=== PATIENT | female | born 1985 | race Caucasian/White ===

== ENCOUNTER 2022-10-20 09:50 | Outpatient (OUT) | payer BC, SELFPAY ==
--- NOTE | 2022-10-20 09:53 | US_ITS ---
[address] [address] Patient Name: JEFFRY WELLINGTON MRN: [id number] date: 1985 Sex: F Assigned Patient Location: US Current Patient Location: US Accession/Order Number: [id number] Exam Date: 10/20/2022 10:10 Report Date: 10/20/2022 11:57 At the request of: ASHER MCCRACKEN Procedure: US pelvis w/ transvaginal EXAMINATION: US pelvis w/ transvaginal HISTORY: Ovulation pain N94.0, Pelvic pain in female R10.2 COMPARISON: No relevant comparison available. TECHNIQUE: Transabdominal and/or transvaginal sonographic examination was performed as indicated by examination type. FINDINGS: UTERUS: Normal size and appearance. Uterus size: 9.1 x 5.7 x 4.6 cm ENDOMETRIUM: Normal homogeneous appearance. Endometrial thickness: 12 mm RIGHT OVARY: Contains multiple similar sized peripherally located follicles 4 mm in diameter. Duplex Doppler demonstrates normal waveform and flow; resistive index 0.6. Ovary size: 3.7 x 2.2 x 1.7 cm LEFT OVARY: Contains a 2.4 cm round isoechoic area with lower density central area; mass versus complex cyst. Duplex Doppler demonstrates normal waveform and flow; resistive index 0.4. Ovary size: 3.8 x 2.6 x 1.9 cm. CUL-DE-SAC: Unremarkable. No significant free fluid. BLADDER: Unremarkable. OTHER: Multiple dilated vessels within left adnexa; nonspecific. US/US pelvis w/ transvaginal IMPRESSION: 1. Left ovary contains a 2.4 cm complex cyst versus mass. Follow-up ultrasound evaluation in 6 weeks is recommended to document regression. 2. Unremarkable uterus and endometrium. 3. Prominent left periuterine vessels of questionable clinical significance. Electronically authenticated by: LONI ASHLEY Date: 10/20/2022 11:57
--- NOTE | 2022-10-20 09:53 | MM_ITS ---
Patient: JEFFRY WELLINGTON Exam Date: 10/20/2022 : 1985 Gender:F Ordering : DR Brant Sharp . Admission #: [id number] Family : DR PEGGY FENG . Order #: [id number] CLICK HERE TO VIEW EXAM RADIOLOGY REPORT PROCEDURE: MM TOMOSYNTHESIS SCREENING BI COMPARISON: None. INDICATIONS: Screening mammogram Z12.31 Calculator Name NCI Breast Cancer Risk Assessment Tool 5 Year Breast Cancer Risk 0.50% Lifetime Breast Cancer Risk 13.90% Personal Breast Cancer No Personal Ovarian Cancer No Treatments None Family Cancers Grandmother-maternal with breast cancer at age 65. LOCATION: [facility] BREAST COMPOSITION: Extremely dense, which lowers the sensitivity of mammography. FINDINGS: DIAGNOSTIC CATEGORY 1--NEGATIVE. Scattered benign-appearing calcifications are present. RIGHT BREAST: No significant suspicious finding. LEFT BREAST: No significant suspicious finding. RECOMMENDATIONS: CLINICAL EVALUATION. PLEASE NOTE: A NORMAL MAMMOGRAM DOES NOT EXCLUDE THE POSSIBILITY OF BREAST CANCER. A CLINICALLY SUSPICIOUS PALPABLE LUMP SHOULD BE BIOPSIED. Dictated by: Dao Leblanc MD on 10/27/2022 at 14:34 Approved by: Dao Leblanc MD on 10/27/2022 at 14:34
== END 2022-10-20 09:51 | disposition home or self-care (01) ==
LOC: US 09:50
PROVIDERS: PCP Family Medicine; Visit Provider Obstetrics & Gynecology
DX: Z12.31 Encounter for screening mammogram for malignant neoplasm of breast (principal); Z80.3 Family history of malignant neoplasm of breast; N94.0 Mittelschmerz; R10.2 Pelvic and perineal pain
CPT/HCPCS: 76830; 76856; 77063; 77067

== ENCOUNTER 2022-12-08 09:51 | Outpatient (OUT) | payer BC, SELFPAY ==
--- NOTE | 2022-12-08 10:02 | US_ITS ---
The [address] [address] Patient Name: JEFFRY WELLINGTON MRN: [id number] date: 1985 Sex: F Assigned Patient Location: US Current Patient Location: US Accession/Order Number: [id number] Exam Date: 12/08/2022 10:11 Report Date: 12/08/2022 14:07 At the request of: ASHER MCCRACKEN Procedure: US pelvis w/ transvaginal EXAMINATION: US pelvis w/ transvaginal HISTORY: Complex Cyst Of Left Ovary N83.292 COMPARISON: 10/20/2022 FINDINGS: The uterus is normal in size, contour and myometrial echotexture measuring 9.6 x 5.3 x 4.3 cm. No focal myometrial mass. Endometrium measures 1.5 cm, within normal limits The right ovary measures 3.4 x 2.89 cm. Normal color Doppler flow. Areas of anechoic echogenicity measuring up to 1.6 cm, cysts and follicles favored The left ovary measures 3.0 x 2.3 x 1.8 cm. Mild color and Doppler flow. Multiple areas of anechoic echogenicity measuring up to 1.4 cm, cysts and follicles favored Prominent left adnexal vessels US/US pelvis w/ transvaginal IMPRESSION: Bilateral ovarian follicles/cysts Prominent left adnexal vessels, consider uterine vein reflux/pelvic vascular congestion Electronically authenticated by: MYLES JJ Date: 12/08/2022 14:07
== END 2022-12-08 09:52 | disposition home or self-care (01) ==
LOC: US 09:51
PROVIDERS: PCP Family Medicine; Visit Provider Obstetrics & Gynecology
DX: N83.292 Other ovarian cyst, left side (principal); N83.02 Follicular cyst of left ovary; N83.01 Follicular cyst of right ovary
CPT/HCPCS: 76830; 76856

== ENCOUNTER 2023-01-21 19:33 | Outpatient (REF) | payer BC, SELFPAY ==
[2023-01-26 18:10] LABS: Age Gdln ACOG Testing Note (.); HPV Aptima Negative (Negative); IGP, Aptima HPV, rfx 16/18,45 Note (.)
== END 2023-01-21 19:34 | disposition home or self-care (01) ==
LOC: LAB 19:33
PROVIDERS: PCP Family Medicine; Visit Provider Obstetrics & Gynecology
DX: Z01.419 Encounter for gynecological examination (general) (routine) without abnormal findings (principal)
CPT/HCPCS: 87624; G0145

== ENCOUNTER 2024-01-27 20:57 | Outpatient (REF) | payer BC, SELFPAY ==
--- OUTSIDE RECORDS SUMMARY | 2024-01-27 21:01 | XMS_ITS | CCD ---
Author Organization [facility] Care Team Providers Care Chief Design Drafter Name Role Phone DR PEGGY FENG Admitting Unavailable JUNG, DR PEGGY Oropeza Attending Unavailable JUNG, DR PEGGY Oropeza Primary Care Unavailable KAYKAY, DR STERLING Consulting Unavailable KAYKAY, DR STERLING Admitting Unavailable KAYKAY, DR STERLING Attending Unavailable JUNG, DR PEGGY Oropeza Admitting Unavailable JUNG, DR PEGGY Oropeza Attending Unavailable DARROW, DR BUENO Consulting Unavailable JUNG, DR PEGGY Oropeza Primary Care Unavailable JUNG, DR PEGGY Oropeza Consulting Unavailable Problems Problem Classification Problem Date Documented Date Episodic/Chronic Immunizations and screening for infectious disease (1 source) Encounter for screening for human papillomavirus (HPV); Translations: [ENC SCREENING HUMAN PAPILLOMAVIRUS] Onset: 01-10-2022 Episodic Nonspecific chest pain (4 sources) Chest pain, unspecified; Translations: [CHEST PAIN UNSPECIFIED] Onset: 01-22-2022 Episodic Other screening for suspected conditions (not mental disorders or infectious disease) (4 sources) Encounter for screening for malignant neoplasm of cervix; Translations: [ENC SCREENING MALIG NEOPLASM CERV] Onset: 01-08-2022 Episodic Results Test Name Value Interpretation Reference Range Facil ity NM STRESS/REST MULTIon 01-22 NM STRESS/REST MULTI Patient: JEFFRY WELLINGTON. Exam Date: 01/22/2022 : 1985 Gender:F Ordering : DR PEGGY FENG . Admission #: [id number] Family : Order #: [id number] CLICK HERE TO VIEW EXAM RADIOLOGY REPORT PROCEDURE: RADIONUCLIDE IMAGING STRESS/REST MULTI COMPARISON: None. INDICATIONS: Central chest pain TECHNIQUE: Exam Description: Stress/Rest one day protocol gated SPECT Rest Imagin.6 mCi Tc-99m Cardiolite IV on 01/23/2022 Stress Imaging 32.0 mCi Tc-99m Cardiolite IV on 01/23/2022 Exercise Protocol: Riaz Heart Rate (bpm): Rest: 77 Max: 169 PMHR: 90 Blood Pressure: Rest: 118/76 Max: 154/92 Exercise Time: Minutes: 12 Seconds: 00 Stage Reached: Stage: 3 Mets 13.4 Symptoms: Rest and peak stress ECG findings were normal and the exercise portion of the study was normal per attending physician Dr. Em . For more details please see separate cardiac stress test report. FINDINGS: QUALITY OF STUDY: Excellent. PERFUSION DEFECT: None. LOCATION: N/A SIZE: N/A. SEVERITY: N/A. TYPE: N/A. WALL MOTION: Normal. LV SIZE: Normal. 88 mL. TID / TCD: None; 1.0 LVEF: Normal. Calculated EF 66%. SUMMARY: Myocardial perfusion imaging study is NORMAL. CONCLUSION: Normal exam. No reversible ischemia Dictated by: Dao Leblanc MD on 01/22/2022 at 15:15 Approved by: Dao Leblanc MD on 01/22/2022 at 15:19 Normal [facility] PAP ACOG PANEL 2: 30 to 65on 01-18-2022 . . Normal [facility] Comment on above: Result Comment: Performed at: WB Performed By: #### [id number] #### [facility] [address] [place] [address] Dr. Tyesha Watson Age Gdln ACOG Testing 30-65 Normal [facility] Comment on above: Performed By: #### [id number] #### [facility] [address] [place] [address] Dr. Tyesha Watson DIAGNOSIS: Comment Normal [facility] Comment on above: Result Comment: NEGATIVE FOR INTRAEPITHE LIAL LESION OR MALIGNANCY. Performed at: WB Performed By: #### [id number] #### [facility] [address] [address] [address] Tyesha Watson HPV Aptima Negative Normal Negative [facility] Comment on above: Result Comment: This nucleic acid amplif ication test detects fourteen high-risk HPV types (16,18,31,33,35,39,45,51,52,56,58,59,66,68) without differentiation. Performed at: =G Performed By: #### [id number] #### [facility] [address] [place], [place] [id number] Dr. Tyesha Watson HPV Genotype Reflex Comment Normal [facility] Comment on above: Result Comment: Criteria not met, HPV Ge notype not performed. Performed at: WB Performed By: #### [id number] #### [facility] [address] [place] [address] Dr. Tyesha Watson Methodology: Comment Normal [facility] Comment on above: Result Comment: This liquid based ThinPr ep(R) pap test was screened with the use of an image guided system. Performed at: WB Performed By: #### [id number] #### [facility] [address] [place] [address] Dr. Tyesha Watson Note: Comment Normal [facility] Comment on above: Result Comment: The Pap smear is a scree kath test designed to aid in the detection of premalignant and malignant conditions of the uterine cervix. It is not a diagnostic procedure and should not be used as the sole means of detecting cervical cancer. Both false-positive and false-negative reports do occur. . Performed at: WB Performed By: #### [id number] #### [facility] [address] [place] [address] Dr. Tyesha Watson Performed by: Comment Normal [facility] Comment on above: Result Comment: Riaz Almaraz, [facility] otechnologist (ASCP) Performed at: WB Performed By: #### [id number] #### [facility] [address] [place] [address] Dr. Tyesha Watson Specimen adequacy: Comment Normal [facility] Comment on above: Result Comment: Satisfactory for evaluat ion. Endocervical and/or squamous metaplastic cells (endocervical component) are present. Areas of partially obscuring inflammatory exudate are present. Performed at: WB Performed By: #### [id number] #### [facility] [address] [place] [address] Dr. Tyesha Watson Encounters Encounter Date Encounter Type Care Provider Facility Start: 01-22-2022 End: 01-23-[address] PEGGY FENG Facility:[facility] Start: 01-22-[address] PEGGY FENG Facil ity:[facility] Start: 01-08-2022 End: 01-08-[address] ASHER MCCRACKEN Facility:[facility] Payers Date Payer Category Payer Unknown [id number] 2.16.84 [id number] 1985 Unknown [id number] 2.16.84 [id number] 1985 Unknown [id number] 2.16.84 [id number] 1957 Self-pay 1957 Unknown [id number] Summary Purpose Family History No Family History Records Found Advance Directives No Advanced Directives Records Found Additional Source Comments INFORMATION SOURCE (unrecogn ized section and content) DATE CREATED AUTHOR 01/28/2022 [facility] FOR RECORDS PERTAINING TO PATIENTS WHO ARE OR HAVE BEEN ENROLLED IN A CHEMICAL DEPENDENCY/SUBSTANCEABUSE PROGRAM, SOME INFORMATION MAY BE OMITTED. This clinical summary was aggregated from multiple sources. Caution should be exercised in using it in the provision of clinical care. This summary normalizes information from multiple sources, and as a consequence, information in this document may materially change the coding, format and clinical context of patient data. In addition, data may be omitted in some cases. CLINICAL DECISIONS SHOULD BE BASED ON THE PRIMARY CLINICAL RECORDS. [facility] [employer] provides no warranty or guarantee of the accuracy or completeness of information in this document.
== END 2024-01-27 20:58 | disposition home or self-care (01) ==
LOC: LAB 20:57
PROVIDERS: PCP Family Medicine; Visit Provider Obstetrics & Gynecology
DX: Z01.419 Encounter for gynecological examination (general) (routine) without abnormal findings (principal)
CPT/HCPCS: 88175

== ENCOUNTER 2025-02-01 18:57 | Outpatient (REF) | payer BC, SELFPAY ==
--- OUTSIDE RECORDS SUMMARY | 2025-02-01 19:01 | XMS_ITS | CCD ---
Author Organization [facility] Care Team Providers Care Fruit Raiser Name Role Phone DR PEGGY FENG Admitting Unavailable JUNG, DR PEGGY Oropeza Attending Unavailable JUNG, DR PEGGY Oropeza Primary Care Unavailable KAYKAY, DR STERLING Consulting Unavailable KAYKAY, DR STERLING Admitting Unavailable KAYKAY, DR STERLING Attending Unavailable JUNG, DR PEGGY Oropeza Admitting Unavailable JUNG, DR PEGGY Oropeza Attending Unavailable [place], DR BUENO Consulting Unavailable NADPRAMODR, DR PEGGY Oropeza Primary Care Unavailable JUNG, DR PEGGY Oropeza Consulting Unavailable Problems Problem ClassificationProblemDateDocumented DateEpisodic/ChronicImmunizations and screening for infectious disease (1 source)Encounter for screening for human papillomavirus (HPV); Translations: [ENC SCREENING HUMAN PAPILLOMAVIRUS]Onset: 73-02-0469DogicdgcImnyemgytkb chest pain (4 sources)Chest pain, unspecified; Translations: [CHEST PAIN UNSPECIFIED]Onset: 96-98-2601IkkofyuhJzknu screening for suspected conditions (not mental disorders or infectious disease) (4 sources)Encounter for screening for malignant neoplasm of cervix; Translations: [ENC SCREENING MALIG NEOPLASM CERV]Onset: 04-57-3186Mecoacvc Results Test NameValueInterpretationReference RangeFacilityNM STRESS/REST MULTIon 48-07-3191GC STRESS/REST MULTIPatient: JEFFRY WELLINGTON. Exam Date: 01/22/2022 : 1985 Gender:F Ordering : DR PEGGY FENG . Admission #: [id number] Family : Order #: [id number] CLICK HERE TO VIEW EXAM RADIOLOGY REPORT [...] by: Dao Leblanc MD on 01/22/2022 at 15:19[facility] ACOG PANEL 2: 30 to 65on 01-18-2022..[facility]The [facility]:Result Comment: Performed at: WBPerformed By: #### [id number] #### [facility] [address] [place] [address] Dr. Tyesha Puentes Gdln ACOG Xoyjdni07-49RpoeilCujProMedica Flower HospitalComment on above:Performed By: #### [id number] #### [facility] [address] [place] [address] Dr. Tyesha WatsonDIAGNOSIS:CommentAultman Hospital on above: Result Comment: NEGATIVE FOR INTRAEPITHELIAL LESION OR MALIGNANCY. Performed at: WBPerformed By: #### [id number] #### [facility] [address] [place] [address] Dr. Tyesha WatsonHPV AptimaNegativeNormalNegativeAshtabula County Medical CenterComment on above:Result Comment: This nucleic acid amplification test detects fourteen high-risk HPV types (16,18,31,33,35,39,45,51,52,56,58,59,66,68) without differentiation. Performed at: =GPerformed By: #### [id number] #### [facility] [address] [place] [address] Dr. Tyesha WatsonHPV Genotype ReflexCommentAultman Hospital on above:Result Comment: Criteria not met, HPV Genotype not performed. Performed at: WBPerformed By: #### [id number] #### [facility] [address] [place] [address] Dr. Tyesha WatsonMethodology:CommentAultman Hospital on above: Result Comment: This liquid based ThinPrep(R) pap test was screened with the use of an image guided system. Performed at: WBPerformed By: #### [id number] #### [place] [address] [address] Tyesha WatsonNote:CommentAultman Hospital on above:Result Comment: The Pap smear is a screening test designed to aid in the detection of premalignant and malignant conditions of the uterine cervix. It is not a diagnostic procedure and should not be used as the sole means of detecting cervical cancer. Both false-positive and false-negative reports do occur. . Performed at: WBPerformed By: #### [id number] #### [facility] [address] [place] [address] Dr. Tyesha WatsonPerformed by:CommentAultman Hospital on above: Result Comment: Riaz Almaraz, [employer] Fab[employer] Supervisor (ASCP) Performed at: WBPerformed By: #### [id number] #### [facility] [address] [place] [address] Dr. Tyesha WatsonSpecimen adequacy:CommentAultman Hospital on above:Result Comment: Satisfactory for evaluation. Endocervical and/or squamous metaplastic cells (endocervical component) are present. Areas of partially obscuring inflammatory exudate are present. Performed at: WBPerformed By: #### [id number] #### [facility] [address] [place] [address] Dr. Tyesha Watson Encounters Encounter DateEncounter TypeCare ProviderFacilityStart: 12-01-2022 End: 38-78-1155ingxvjflobTJ PEGGY RAMEYPRAMODRFacility:M6Hgezo: 80-50-4806fzfkprixmr DR PEGGY PETERSONRFacility:D5Fznro: 01-08-2022 End: 28-46-0320bbpyhusyfvUM ASHER FAZIOFacility:H1 Payers DatePayer CategoryPayerPolicy [id number] Summary Purpose Family History No Family History Records Found Advance Directives No Advanced Directives Records Found Additional Source Comments INFORMATION SOURCE (unrecogn ized section and content) DATE CREATED AUTHOR 01/28/2022 [facility] FOR RECORDS PERTAINING TO PATIENTS WHO [...] BE BASED ON THE PRIMARY CLINICAL RECORDS. [employer] provides no warranty or guarantee of the accuracy or completeness of information in this document.
== END 2025-02-01 18:58 | disposition home or self-care (01) ==
LOC: LAB 18:57
PROVIDERS: PCP Family Medicine; Visit Provider Nurse Practitioner Family
DX: Z01.419 Encounter for gynecological examination (general) (routine) without abnormal findings (principal)
CPT/HCPCS: 88175